=== PATIENT | male | born 1960 | race Caucasian/White ===

== ENCOUNTER 2017-03-23 08:46 | Emergency (ER) | payer SELFPAY ==
--- NOTE | 2017-03-23 09:06 | ED.PDOC ---
History of Present Illness - General Chief Complaint: Neuro Symptoms/Deficits Time Seen by Provider: 03/23/17 08:58 Source: patient Exam Limitations: no limitations - History of Present Illness Initial Comments: Patient presents with right sided facial weakness since yesterday morning. He cannot move the right side of the mouth nor close his right eyelid. He recently had a "head cold". He has never had an AMI nor CVA. He has full strength and sensation in all his limbs and a normal gait. No chest pain. No other symptoms. No previous episodes. Timing/Duration: 24 hours Severity: moderate Improving Factors: nothing Worsening Factors: nothing Associated Symptoms: denies symptoms Allergies/Adverse Reactions: Allergies NO KNOWN ALLERGY Allergy (Unverified 05/29/13 07:42) Home Medications: Ambulatory Orders Ketorolac Tromethamine [Toradol Tabs] 10 mg PO DAILY PRN #20 tab 10/30/15 Mineral Oil/Petrolatum Ophth [Refresh Lacri-Lube] 1 applic RIGHT_EYE BEDTIME #1 ud 03/23/17 Polyvinyl Alcohol [Artificial Tears] 1.4 % OP PRN #1 martell 03/23/17 Valacyclovir HCl 1 gm PO TID #30 tab 03/23/17 predniSONE 60 mg PO DAILY #7 tab 03/23/17 Review of Systems - Review of Systems Constitutional: States: no symptoms reported EENTM: States: no symptoms reported Respiratory: States: no symptoms reported Cardiology: States: no symptoms reported Gastrointestinal/Abdominal: States: no symptoms reported Genitourinary: States: no symptoms reported Musculoskeletal: States: no symptoms reported Skin: States: no symptoms reported Neurological: States: see HPI Endocrine: States: no symptoms reported Hematologic/Lymphatic: States: no symptoms reported Past Medical History (General) - Patient Medical History Hx Renal Disease: Yes Hx MRSA: Yes - Finger 2010 MRSA Source:: Wound - Vaccination History Hx Tetanus, Diphtheria Vaccination: Yes - Social History Hx Alcohol Use: Yes - Female History Patient : No Family Medical History - Family History Father Family History: No Known Living Status: Physical Exam - Physical Exam General Appearance: Alert Eye Exam: right other - inability to close right eyelid Ears, Nose, Throat: normal ENT inspection Neck: non-tender, full range of motion, supple Respiratory: lungs clear Cardiovascular/Chest: normal peripheral pulses, regular rate, rhythm Gastrointestinal/Abdominal: normal bowel sounds, non tender, soft Extremity: normal range of motion, non-tender, normal inspection Neurologic: other - CN 2,3,4,5,6 intact grossly. 7 shows pathology as the risorius muscle and depressor palpebrae superiorus as well as orbicularis oculi are all paralyzed. Limbs have 5/5 strength in all normal ranges of motion. Skin Exam: normal color Progress - Progress Progress: 03/23/17 09:56 CT negative for acute disease labs wnl Laboratory Tests 03/23/17 03/23/17 03/23/17 09:10 09:15 09:15 WBC 8.3 RBC 5.04 Hgb 14.5 Hct 43.1 MCV 85.5 MCH 28.8 MCHC 33.6 RDW 14.1 Plt Count 173 MPV 8.6 Absolute Neuts (auto) 6.70 Absolute Lymphs (auto) 1.10 Absolute Monos (auto) 0.40 Absolute Eos (auto) 0.10 Absolute Basos (auto) 0.00 Neutrophils % 80.9 H Lymphocytes % 13.0 L Monocytes % 4.3 Eosinophils % 1.3 Basophils % 0.5 Sodium 139 Potassium 3.5 L Chloride 103 Carbon Dioxide 26 Anion Gap 13.5 BUN 11 Creatinine 1.07 BUN/Creatinine Ratio 10.3 Random Glucose 129 H Serum Osmolality 278.6 Calcium 9.2 Total Bilirubin 1.0 AST 23 ALT 38 Alkaline Phosphatase 89 Serum Total Protein 7.5 Albumin 4.2 Globulin 3.3 Albumin/Globulin Ratio 1.3 Urine Color Yellow Urine Appearance Clear Urine pH 6.0 Ur Specific Lamy 1.020 Urine Protein Negative Urine Glucose (UA) Negative Urine Ketones Negative Urine Blood Moderate H Urine Nitrite Negative Urine Bilirubin Negative Urine Urobilinogen 0.2 Ur Leukocyte Esterase Negative Urine RBC 20-30 H Urine WBC 0 Ur Epithelial Cells 0 Urine Bacteria 0 Urine Mucus Moderate Urine Yeast 1+ Departure - Departure Clinical Impression: Ledesma's palsy Disposition: Discharge to Home or Self Care Condition: Good Departure Forms: ED Discharge - Pt. Copy, Patient Portal Self Enrollment Diet: resume usual diet Activity: increase activity as tolerated Prescriptions: Mineral Oil/Petrolatum Ophth [Refresh Lacri-Lube] 1 applic RIGHT_EYE BEDTIME #1 ud Polyvinyl Alcohol [Artificial Tears] 1.4 % OP PRN #1 martell predniSONE 60 mg PO DAILY #7 tab Valacyclovir HCl 1 gm PO TID #30 tab Home Medications: Ambulatory Orders Ketorolac Tromethamine [Toradol Tabs] 10 mg PO DAILY PRN #20 tab 10/30/15 Mineral Oil/Petrolatum Ophth [Refresh Lacri-Lube] 1 applic RIGHT_EYE BEDTIME #1 ud 03/23/17 Polyvinyl Alcohol [Artificial Tears] 1.4 % OP PRN #1 martell 03/23/17 Valacyclovir HCl 1 gm PO TID #30 tab 03/23/17 predniSONE 60 mg PO DAILY #7 tab 03/23/17 Additional Instructions: Take medications as directed. Use artificial tears every hour while awake until you are able to close your right eye without problems. Follow up with your regular doctor in the next 1-2 weeks. Follow up with ophthalmology or executive services administrator today for proper eye wear.
[2017-03-23 09:20] VITALS: TEMP 99.2
--- NOTE | 2017-03-23 09:42 | CT ---
Study: CT of the Head. Indication: Right sided facial droop and weakness. Technique: Axial CT images of the head were acquired without intravenous contrast. This exam was performed according to our departmental dose-optimization program, which includes automated exposure control, adjustment of the mA and/or kV according to patient size and/or use of iterative reconstruction technique. Comparison: None. Findings: No CT evidence of acute ischemia, acute hemorrhage, mass, mass effect, midline shift, or extra-axial fluid collection. Ventricles are normal in configuration without hydrocephalus. Brain parenchyma demonstrates a normal appearance for patient age. Complete opacification left maxillary sinus and ethmoid air cells as well as the majority of the left frontal sinus.. Mastoid air cells are adequately aerated. Osseous structures and soft tissues are unremarkable. Impression: 1. No CT evidence of acute intracranial abnormality. 2. Extensive paranasal sinus mucosal disease. Nonemergent CT sinuses could better evaluate. Electronically signed by: Luis Prescott MD 03/23/2017 9:39 AM CDT
[2017-03-23 09:54] VITALS: BP 147/102; O2SAT 96
== END 2017-03-23 09:28 | disposition home or self-care (01) ==
LOC: ER 08:46
DX: G51.0 Bell's palsy (principal); Z86.14 Personal history of Methicillin resistant Staphylococcus aureus infection; Z79.899 Other long term (current) drug therapy; Z87.448 Personal history of other diseases of urinary system